=== PATIENT | female | born 1990 | race African-American/Black ===

== ENCOUNTER 2016-11-22 13:49 | Outpatient (CLI) | payer OTHER, SELFPAY ==
[~2016-11-22] VITALS: Ht 167.6 cm; Wt 87.0 kg
[2016-11-22] MEDS ORDERED: PRENTAB9 PO (14:04)
[2016-11-22 14:05] VITALS: BP 111/58
[2016-11-22 15:38] VITALS: BP 119/55
== END 2016-11-22 15:50 | disposition home or self-care (01) ==
LOC: M LDO 13:49
PROVIDERS: ATTEND Obstetrics & Gynecology
DX: O36.8130 Decreased fetal movements, third trimester, not applicable or unspecified (principal); O99.89 Other specified diseases and conditions complicating pregnancy, childbirth and the puerperium; W01.0XXA Fall on same level from slipping, tripping and stumbling without subsequent striking against object, initial encounter; Y92.9 Unspecified place or not applicable; Y93.9 Activity, unspecified; Y99.9 Unspecified external cause status; Z3A.30 30 weeks gestation of pregnancy

== ENCOUNTER 2017-01-28 01:17 | Inpatient (IN) | payer OTHER ==
[2017-01-28] VITALS (43 sets, daily range): BP systolic 85–145; BP diastolic 43–92
[~2017-01-28 01:17] MED LIST: PRENTAB9 PO
[2017-01-28] MEDS ORDERED: LACTATED RINGER'S 1000 ML IV STA (02:15)
[2017-01-28] MEDS ORDERED: LR 1,000 ML IV SCH ×2 (02:15→07:02)
[2017-01-28 03:24] LABS: MEAN CORPUSCULAR HEMOGLOBIN 29.5 pg (27.0-33.0); MEAN CORPUSCULAR HGB CONC 31.6 g/dl (32.0-36.5); MEAN CORPUSCULAR VOLUME 93.4 fl (80.0-96.0); RED CELL DISTRIBUTION WIDTH 13.4 % (11.5-14.5)
[2017-01-28] MEDS ORDERED: FENTANYL 2MCG/ML ROPIVACAINE 0.2% IN 0.9% NACL 200ML IVBAG As Ordered ONE (03:27)
[2017-01-28] MEDS ORDERED: OXYTOCIN DRIP 30 UNITS in APPROPRIATE DILUENT 1 EA IV SCH (07:15)
[2017-01-28 13:45] LABS: CORD GAS ABE A -0.2; CORD GAS HCO3 A 27.6 MEQ/L; CORD GAS O2 SAT A 17.3 %; CORD GAS PCO2 A 60.3 mmHg; CORD GAS PH A 7.279 UNITS; CORD GAS SBC A 22.7 MEQ/L; CORD GAS TCO2 A 29.5 MEQ/L
[2017-01-28 13:47] LABS: CORD GAS ABE V -1.3; CORD GAS HCO3 V 23.6 MEQ/L; CORD GAS O2 SAT V 71.3 %; CORD GAS PCO2 V 40.7 mmHg; CORD GAS PH V 7.382 UNITS; CORD GAS PO2 V 31.1 mmHg; CORD GAS SBC V 22.8 MEQ/L; CORD GAS TCO2 V 24.9 MEQ/L
[2017-01-28] MEDS ORDERED: OXYTOCIN INJ 10 UNITS/ML VIAL (J2590) IV ONE (14:00)
[2017-01-28] MEDS ORDERED: RHOGAM 300 MCG (1500 IU) INJ (J2790) IM SCH (14:00)
[2017-01-28] MEDS ORDERED: DIBUCAINE 1% OINTMENT 30GM TOP PRN (14:00)
[2017-01-28] MEDS ORDERED: ANUSOL HC CREAM 30GM TOP PRN (14:00)
[2017-01-28] MEDS ORDERED: MOM 30ML SUSPENSION UDC PO PRN (14:00)
[2017-01-28] MEDS ORDERED: DOCUSATE SODIUM 100 MG CAP PO PRN (14:00)
[2017-01-28] MEDS ORDERED: METHYLERGONOVINE MALEATE 0.2 MG TAB PO PRN (14:00)
[2017-01-28] MEDS ORDERED: ACETAMINOPHEN 500 MG TAB PO PRN (14:00)
[2017-01-28] MEDS ORDERED: MEASLES,MUMPS,RUBELLA VACCINE INJ (MMR-II) (90707) SC SCH (14:00)
[2017-01-28] MEDS ORDERED: IBUPROFEN 800 MG TAB PO PRN (14:00)
--- NOTE | 2017-01-28 15:18 | DN ---
DATE: 01/28/2017 DELIVERY NOTE: This lady is a 1, para 0, admitted at 40 and 3 weeks of gestation with contractions, group B Streptococcus (GBS) negative, with epidural in place. Had spontaneous vaginal delivery live female weighing 7 pounds 12 ounces, 3508 grams. scores of 8 and 9 and 1 and 5 minutes respectively. Cord around the neck once was loose. Terminal meconium was noted. Arterial and venous pH were performed. Placenta delivered spontaneously thereafter, meconium stained. Uterus contracted well on Pitocin. The perineum, lateral kendall, cervix were all normal. She had a small upper labial tear which required one stitch because of active bleeding. The more significant bleeding was from her ruptured internal hemorrhoids. Uterus contracted well down. The patient tolerated procedure well.
--- NOTE | 2017-01-29 05:41 | DN ---
DATE OF DELIVERY: 01/28/2017 This lady is 1, para 0 who was admitted in active labor, epidural was in place. After pushing for about 40 minutes had a spontaneous vaginal delivery of the head followed by the body with an intact perineum, a live female weighing 7 pounds, 12 ounces, 3508 grams, of 8 and 9 in one and five minutes respectively. Cord was around the neck times 1 loose. The arterial and venous pH were performed. Arterial pH was 7.29, base excess -0.2, venous pH 7.38, base excess -1.3. Placenta was complete, three-vessel, membranes and tissues intact. Uterus contracted well under Pitocin. Evaluation of the vagina, cervix, anterior and posterior wall of the bladder all appeared to be in normal condition. Sphincter was intact. The patient and baby tolerating procedure well.
[2017-01-29 06:31] VITALS: BP 115/67
[2017-01-29 07:17] LABS: MEAN CORPUSCULAR HEMOGLOBIN 29.4 pg (27.0-33.0); MEAN CORPUSCULAR HGB CONC 32.5 g/dl (32.0-36.5); MEAN CORPUSCULAR VOLUME 90.5 fl (80.0-96.0); RED CELL DISTRIBUTION WIDTH 13.6 % (11.5-14.5); WHITE BLOOD COUNT 11.9 K/mm3 (4.0-10.0)
--- NOTE | 2017-01-29 07:28 | IPN ---
DATE: 01/29/2017 26-year-old 1 now para 1 came in [place] at 40 and 3, had a spontaneous vaginal delivery female 7 pounds 12 ounces, 3508 grams, of 8 and 9 at one and five minutes respectively. Her arterial pH 7.27, base excess -0.2, venous pH 7.38, base excess -1.3. We discussed phlebitis, cystitis, mastitis, endometritis and cellulitis, diet, exercise, pain management, perineal, breast and wound care. Requesting control pills which will be dispensed at her discharge and counseled regarding 6 weeks use. The rest of the examination is unremarkable. Her blood pressure is 115/67, respirations 18, pulse 80, temperature 98.3. Her admitting hemoglobin 13.4, hematocrit 42.4, platelets 132. We are waiting for her 6 a.m. day #1 hemoglobin. The patient is passing gas, voiding. No incontinence or frequency. No hemorrhoids. No rectal bleeding. Perineum is dry and intact and uterus two below. Lochia is moderate. Chest is clear bilateral to bases. No evidence of DVT, PE or superficial phlebitis. The patient is planning on discharge tomorrow morning.
[2017-01-29] MEDS: PRENATAL VITAMIN TAB PO SCH (08:59)
[2017-01-30 06:21] VITALS: BP 135/73
--- NOTE | 2017-01-30 08:22 | DSES ---
DATE OF ADMISSION: 01/28/2017 DATE OF DISCHARGE: 01/30/2017 This lady is a 26-year-old, 1, now para 1, admitted at 40 and 3 with contractions, group B streptococcus (GBS) negative, spontaneous vaginal delivery of live female weighing 7 pounds 12 ounces, 3508 grams, scores of 8 and 9 at one and five minutes, respectively. Cord was around neck loose times one. Her admitting hemoglobin 13.4, hematocrit 42.4, platelets 132. Discharge hemoglobin 11.9, hematocrit 36.6, and platelets 144. Arterial blood gas for the baby was 7.27, base excess -0.2, venous pH 7.38, base excess -1.3. We discussed phlebitis, cystitis, mastitis, endometritis, and cellulitis, diet, exercise, pain management, perineal, breast, and wound care. She was given medications on discharge. She is wanting oral contraceptives, which is in her package, and she was counseled regarding starting in 6 weeks' time. On discharge, her blood pressure is 135/73, respirations 16, pulse 66, temperature is 98.4. She is normocephalic, atraumatic. Neck full range of motions. Pupils equal and reactive to light. Distal pulses are symmetric. No evidence of deep venous thrombosis (DVT), pulmonary embolism (PE), or superficial phlebitis. Chest is clear bilaterally to bases. No wheezes or rhonchi. Thyroid is midline. No costovertebral angle (CVA) tenderness. Uterus is 2 below. Lochia is moderate. Four quadrant bowel sounds are noted, and perineum is healing. She has no rashes, lesions, or pruritus. No arthralgia or myalgia. No complaints of cough, wheezes, shortness of breath, or dyspnea on exertion. She has no chest pain. Not bleeding. Neurologically complete. No incontinence, urgency, or frequency. No nausea, vomiting, diarrhea, or constipation. No diabetic issues. No gynecological (CUPOLA LINER), past medical, or surgical histories. FAMILY HISTORY: Is noncontributory. She does not smoke or drink or abuse drugs. She is , and there is no domestic violence. IN SUMMARY: We have a term gestation who delivered a live female discharged with instructions and followup in the office in 6 weeks' time. Edited: [email or web address] 01/31/2017 [id number]
[2017-01-30] MEDS ORDERED: ACET50TA PO (08:41)
[2017-01-30] MEDS ORDERED: MOM30SS PO (08:41)
[2017-01-30] MEDS ORDERED: ANUS2.5C2 TOP (08:41)
[2017-01-30] MEDS ORDERED: IBUP-1114 PO (08:41)
[2017-01-30] MEDS ORDERED: NUPE1OIN2 TOP (08:41)
[2017-01-30] MEDS ORDERED: COLA100C3 PO (08:41)
[2017-01-30] MEDS: PRENATAL VITAMIN TAB PO SCH (09:52)
== END 2017-01-30 11:45 | disposition home or self-care (01) | DRG 775 ==
LOC: M LDO 01:17 → M LDI 01:42 → M OBS 16:04
PROVIDERS: ADMIT Student in an Organized Health Care Education/Training Program; ATTEND Obstetrics & Gynecology
PROC: 10E0XZZ Delivery of Products of Conception, External Approach (ICD-10-PCS; principal; 2017-01-28)
PROC: 0HQ9XZZ Repair Perineum Skin, External Approach (ICD-10-PCS; 2017-01-28)
DX: O48.0 Post-term pregnancy (principal); O22.43 Hemorrhoids in pregnancy, third trimester; Z3A.40 40 weeks gestation of pregnancy; O69.81X0 Labor and delivery complicated by cord around neck, without compression, not applicable or unspecified; O77.0 Labor and delivery complicated by meconium in amniotic fluid; O70.0 First degree perineal laceration during delivery; Z37.0 Single live birth